=== PATIENT | male | born 1975 | race African-American/Black ===

== ENCOUNTER 2017-07-18 11:17 | Emergency (ER) | payer SELFPAY ==
--- NOTE | 2017-07-18 13:36 | PD ---
HPI . back pain shooting down right leg Chief Complaint: back pain shooting down right leg Time Seen by Provider: 11:34 Travel History International Travel<30 days: No Contact w/Intl Traveler<30days: No Traveled to known affect area: No History of Present Illness HPI 41-year-old male here with complaints of back pain that is shooting to his right leg. Patient says on Wednesday he was going down some stairs when he accidentally misstepped and hurt his back. He tells me that ever since she's been experiencing back pain that is shooting into his right leg. He rates the pain as moderate to severe. In triage reported that his pain was 8/10. Back in the exam room he tells me that his pain is 5/10. He denies any bowel or bladder dysfunction. He has no saddle anesthesia. He has no other complaints. He does not have a primary care provider Vital signs, temperature 97.8, heart rate 87, respiratory rate 17, blood pressure 172/98, O2 sat 98% PFSH Past Medical History Medical History: Denies Significant Hx Social History Alcohol Use: Yes Tobacco Use: Yes Allergies-Medications (Allergen,Severity, Reaction): Coded Allergies: No Known Drug Allergies (Verified Allergy, Unknown, 07/18/17) Reported Meds & Prescriptions Reported Meds & Active Scripts Active No Active Prescriptions or Reported Medications Review of Systems General / Constitutional: No: Fever Eyes: No: Visual changes HENT: No: Headaches Cardiovascular: No: Chest Pain or Discomfort Respiratory: No: Shortness of Breath Gastrointestinal: No: Abdominal Pain Genitourinary: No: Dysuria Musculoskeletal: Positive: Pain (back pain) Skin: No Rash Neurologic: No: Weakness Psychiatric: No: Depression Endocrine: No: Polydipsia Hematologic/Lymphatic: No: Easy Bruising Physical Exam Narrative GENERAL: AAO x 3, no acute distress, Well-nourished, well-developed patient. SKIN: Warm and dry. No visible rashes or bruising. HEAD: Normocephalic and atraumatic. EYES: No scleral icterus. No injection or drainage. EOM intact, PERRLA ENT: No nasal drainage noted. Mucous membranes pink. Airway patent. NECK: Supple, trachea midline. No JVD. CARDIOVASCULAR: Regular rate and rhythm without murmurs, gallops, or rubs. RESPIRATORY: Breath sounds equal bilaterally. No accessory muscle use. No rhonchi or rales. GASTROINTESTINAL: Abdomen soft, non-tender, nondistended. No rebound or guarding EXTREMITIES: No cyanosis or edema. BACK: Nontender without obvious deformity. Tenderness to the right side paraspinal muscles, patient is ambulatory. Negative straight leg raise NEURO: CN II-12 intact, day care home provider strength normal b/l, UE and LE 5/5, no focal deficits PSYCH: AAO x 3, normal affect. MDM Medical Decision Making Medical Screen Exam Complete: Yes Emergency Medical Condition: Yes Medical Record Reviewed: Yes Differential Diagnosis Lumbago, sciatica, lumbar radiculopathy, Narrative Course 41-year-old male here with complaints of back pain radiating to his right leg. On examination patient appears to have some sciatica. Here in the emergency department I initially provided him with some Norflex. He tells me that it initially relieved his pain, however he still had pain. I additionally provide him with some Toradol. Prior to discharge patient verbalized that his pain was improved. Home with Flexeril. He can use [id number] ibuprofen as directed on the bottle. He will need to follow-up with primary care provider. Advised to return to the emergency department for any worsening of his condition. Patient verbalized understanding of instructions, questions were answered, and thanked me for their care. I advised them if their condition worsens, please return to the nearest emergency room for further care. Patient was given Flexeril 5 mg 3 times a day #21 0 refills Diagnosis Primary Impression: Lumbago Qualified Codes: M54.41 - Lumbago with sciatica, right side Additional Instructions: Muscle relaxers can cause drowsiness. Do not drive, swim or operate heavy machinery while using these medications. Please return to emergency department if your symptoms return or worsen. Follow up with your primary care provider. Take medications as prescribed. Med/Other Pt SpecificInfo: Prescription(s) given Scripts No Active Prescriptions or Reported Meds Disposition: 01 DISCHARGE HOME Condition: Stable Sandra Alcantara Jul 18, 2017 13:35
== END 2017-07-18 12:26 | disposition home or self-care (01) ==
LOC: NED 11:17 → NEPD 12:26
DX: M54.41 Lumbago with sciatica, right side (principal)
CPT/HCPCS: 99282